=== PATIENT | male | born 2000 | race African-American/Black ===

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

== ENCOUNTER 2023-02-16 06:45 | Emergency (ER) | payer BC, MEDICAID, SELFPAY ==
[2023-02-16 07:19] LABS: #Eosinphils 0.2 thou/uL (0.0-0.7); #Monocytes 0.3 thou/uL (0.11-0.59); #Neutrophils 3.8 thou/uL (1.40-6.50); %Basophils 0.5 % (0.0-1.0); %Eosinophils 3.7 % (0.0-10.0); %Lymphocytes 30.5 % (21.0-51.0); %Monocytes 5.2 % (0.0-10.0); %Neutrophils 59.9 % (42.0-75.0); Hematocrit 41.3 % (42.0-52.0); Hemoglobin 12.7 g/dL (14.0-18.0); Mean Corpuscular HGB CONC 30.8 g/dL (32.0-36.0); Mean Corpuscular Volume 91.2 fl (78.0-98.0); Mean Platelet Volume 11.5 fL (7.4-10.4); Platelet Count 138 10x3/uL (130-400); RBC Distribution Width 11.8 % (11.5-14.5); Red Blood Cell (RBC) Count 4.53 mill/uL (4.70-6.10); White Blood Cell (WBC) Count 6.3 10x3/uL (4.8-10.8)
[2023-02-16 07:37] LABS: ALT (SGPT) 13 U/L (8-55); AST (SGOT) 15 U/L (5-34); Alkaline Phosphatase 69 U/L (40-110); Anion Gap 11 mmol/L (10-20); BUN (Urea Nitrogen) 6 mg/dL (8.9-20.6); Bilirubin, Total 2.9 mg/dL (0.2-1.2); Calc. Creatinine Clearance 0 mL/min (70-130); Calcium 9.2 mg/dL (7.8-10.44); Carbon Dioxide 28 mmol/L (22-29); Chloride 103 mmol/L (98-107); Estimated GFR 106; Globulin 2.7 g/dL (2.4-3.5); Glucose 87 mg/dL (70-105); Lipase 4 U/L (8-78); Protein, Total 6.7 g/dL (6.0-8.3); Sodium 138 mmol/L (136-145)
[2023-02-16] MEDS ORDERED: Dicyclomine 20 MG TAB ONE (08:37)
== END 2023-02-16 08:39 | disposition home or self-care (01) ==
LOC: ERS 06:45
DX: R11.2 Nausea with vomiting, unspecified (principal); R10.13 Epigastric pain; R19.7 Diarrhea, unspecified
CPT/HCPCS: 36415; 76705; 80053; 83605; 83690; 85025

== ENCOUNTER 2023-06-11 19:30 | Emergency (ER) | payer SELFPAY ==
[2023-06-11] MEDS ORDERED: HYDROcodone/Acetaminophen 5/325 mg Tablet ONE (20:59)
== END 2023-06-11 21:20 | disposition home or self-care (01) ==
LOC: ERS 19:30
DX: K04.7 Periapical abscess without sinus (principal)
CPT/HCPCS: 99282